=== PATIENT | female | born 1995 | race Caucasian/White ===

== ENCOUNTER 2018-12-21 23:30 | Emergency (ER) | payer SELFPAY ==
[~2018-12-21] VITALS: Ht 167.6 cm; Wt 81.8 kg
[2018-12-21 23:55] VITALS: Ht 167.6 cm; Wt 81.8 kg
[2018-12-21] MEDS ORDERED: BIRTH CONTROL (23:55)
[2018-12-21] MEDS ORDERED: TRAVADA (23:56)
[2018-12-21] MEDS ORDERED: CELEXA10 MG (23:56)
[2018-12-22] MEDS ORDERED: TORADOL10 MG PO (01:09)
[2018-12-22 01:24] VITALS: BP 129/74
== END 2018-12-22 01:24 | disposition home or self-care (01) ==
LOC: D.ER 23:30
DX: J02.9 Acute pharyngitis, unspecified (principal)